=== PATIENT | male | born 1990 | race Caucasian/White ===

== ENCOUNTER 2019-08-25 23:04 | Emergency (ER) | payer OTHER, SELFPAY ==
[2019-08-25 23:04] VITALS: BP 131/67; PULSE 86; RESP 16; TEMP 36.3; O2SAT 97; BMI 22.8
--- NOTE | 2019-08-25 23:22 | ED.DCSUM_ITS ---
History of Present Illness Chief Complaint: General Illness Informant: Patient Narrative: Patient states that he was off about 2 weeks out of concern for COVID symptoms. He states he had a sore throat feeling rundown some diarrhea decreased appetite. Last Saturday he went back to work and has been working since. He works in a factory. Today he was having some diarrhea and some abdominal cramping. He went to work at approximately 2000 hours. He states he was extremely hot and they had him running 3 different lines. He began to get very weak sweaty fatigued. He states he went outside to get some fresh air but due to the high heat and humidity it did not really help him. He told his boss he needed to come get checked out. He notes that his sore throat is never left him. He states that when he was drinking water today he would get sweaty. He denies any fevers. He notes a continued cough. Notes various myalgias and arthralgias. Patient also inquires about his nasal congestion that he has had my entire life. He states he is tried nasal sprays and that did not help. He wonders what next to try. He also has a rash on his inner thighs that is basically gone now. It started a month ago started off as small red spots some of them turned into acne-like. Past Medical History - Allergies and Home Meds Allergies/Adverse Reactions: Allergies No Known Allergies Allergy (Verified 08/25/19 23:08) Primary Care Physician: Josie Perez MD [Primary Care Provider] - As soon as possible Smoking Status: Never smoker Review of Systems General: Reports: Chills, Malaise. Denies: Fever, Sweats Eyes: Denies: Visual changes - bilaterally, Diplopia ENT: Reports: Sore throat. Denies: Rhinorrhea Cardiovascular: Denies: Chest pain, Palpitations Respiratory: Reports: Cough. Denies: Dyspnea, Dyspnea on exertion Gastrointestinal: Reports: Abdominal pain, Diarrhea. Denies: Nausea, Vomiting, Melena, Hematochezia Genitourinary: Denies: Dysuria, Hematuria, Frequency Musculoskeletal: Reports: Myalgias, Arthralgias. Denies: Back pain, Extremity Pain Skin: Denies: Rash, Wounds Neurological: Reports: Headache. Denies: Weakness, Numbness Physical Exam Vital Signs/Narrative: Vital Signs Temp Pulse Resp BP Pulse Ox 08/25/19 23:04 97.4 F L 86 16 131/67 H 97 Inital Vital Signs reviewed: Yes General: Well nourished, Well developed, No Acute Distress Head: Normocephalic, Atraumatic Eyes: Perrl, EOMI ENT: Moist mucous membranes, No rhinorrhea Neck: Supple, Nontender Cardiovascular: Regular rate, Regular rhythm, No murmurs Respiratory: No distress, CTA bilaterally, Chest nontender Abdomen: Soft, Nontender, Nondistended, Normal bowel sounds Back: Nontender, Normal Inspection Extremities: Nontender, No edema Skin: Normal color, No rash Neurological: Alert, Oriented x3, Cranial nerves II-XII grossly intact, Normal Strength, Normal Sensation Psychological: Normal affect, Normal Mood Diagnostic/Tx/Re-eval - Medical Decision Making Chest x-ray shows no distinct infiltrates. A COVID test was sent will be resul fanta in the next couple days. I recommend that he stay home and rest. Think some of his symptoms tonight work were most likely heat exhaustion. I recommend he try daily Zyrtec or Claritin and if that does not help his nasal congestion either visit with his primary care physician again or with ENT. The rash is a basically gone except for a few scabs but sounds may be like a folliculitis. ED Disposition - Plan for ED Patient: Disposition: Home or Assisted Living Diagnosis: Viral syndrome, Heat exhaustion Instructions: ED Exhaustion Heat, ED Viral Syndrome Referrals: Josie Perez MD [Primary Care Provider] - As soon as possible Additional Instructions: Your Covid test should be back within the next couple days. I recommend that you not go to work until that test is back.
--- NOTE | 2019-08-25 23:30 | RAD_ITS ---
HISTORY: dyspnea, sore throat, headache, body ache and chills EXAMINATION/TECHNIQUE: XR Chest 1 View: Portable COMPARISON: None FINDINGS: Normal heart size and normal lung volumes. No focal infiltrate. No vascular congestion or pleural effusion. No pneumothorax. The bony thorax appears intact. RAD/Chest 1 View (Portable) IMPRESSION: No acute cardiopulmonary disease. at 0004 Reported and signed by: Jevon Griffiths MD Electronically Signed: Jevon Griffiths, at 0:03 EDT Tel , Service support ,
[2019-08-26 00:34] VITALS: BP 128/62; PULSE 78; PULSE 84; RESP 16; TEMP 36.6; O2SAT 97
[2019-08-26 00:38] VITALS: BP 128/62; PULSE 82; RESP 16; O2SAT 97
== END 2019-08-26 00:38 | disposition home or self-care (01) ==
PROVIDERS: Emergency Provider Emergency Medicine; PCP Internal Medicine
DX: B34.9 Viral infection, unspecified (principal); T67.5XXA Heat exhaustion, unspecified, initial encounter; X58.XXXA Exposure to other specified factors, initial encounter; Y93.9 Activity, unspecified; Y92.63 Factory as the place of occurrence of the external cause; Y99.0 Civilian activity done for income or pay; R19.7 Diarrhea, unspecified; J02.9 Acute pharyngitis, unspecified; R10.9 Unspecified abdominal pain; R05 Cough
CPT/HCPCS: 71045; 87635; 99282; G2023; U0003

== ENCOUNTER → 2024-08-13 | Outpatient (CLI) | payer MEDICAID, SELFPAY ==
[2024-08-13 16:34] LABS: Absolute Lymphocyte Count 1.49 X10^3/uL (0.83-4.51); Absolute Neutrophil Count 2.9 X10^3/uL (2.0-7.7); Basophil# 0.03 X10^3/uL; Basophil% 0.6 % (0-1); Eosinophil# 0.21 X10^3/uL; Eosinophils% 3.9 % (0-5); Hemoglobin 15.2 g/dL (13.0-16.5); Lymphocyte # 1.49 X10^3/ul (0.83-4.51); Lymphocyte % 27.7 % (19-41); Mean Corp Hgb Conc 33.8 g/dL (32-36); Mean Corpuscular Hgb 28.5 pg (27.0-32.0); Mean Corpuscular Volume 84.3 fL (80-94); Mean Platelet Vol. 9.9 fl (6.2-12.0); NRBC Flagged by Analyzer 0 % (0-5); Neutrophil # 2.93 X10^3/uL (2.7-7.7); Neutrophil % 54.4 % (47-70); Platelet Count 262 K/mm3 (150-450); RBC Distribution Width CV 12.4 % (11.6-14.6); RBC Distribution Width SD 37.7 fl (35.1-43.9); Red Blood Count 5.34 M/mm3 (4.6-6.2); White Blood Count 5.4 K/mm3 (4.4-11.0)
[2024-08-13 17:24] LABS: ALB/GLOB Ratio 1.5 RATIO (0.9-2.4); AST(SGOT) 52 U/L (<=37); Alanine Aminotransfer ALT/SGPT 91 U/L (<=46); Albumin, Serum 4.4 g/dL (3.5-5.0); Alkaline Phosphatase 72 U/L (40-129); Anion Gap 11 (5-15); BUN 13 mg/dL (4-19); BUN/Creat Ratio 10.6 RATIO (10-20); Calcium,Total 9.9 mg/dL (7.6-11.0); Carbon Dioxide 25.5 mmol/L (21.0-32.0); Chloride 101 mmol/L (98-108); Creatinine, Serum 1.26 mg/dL (0.70-1.20); EST Glomerular Filtration Rate 78 (>60); Glucose 98 mg/dL (70-99); Iron 126 ug/dL (65-175); Iron Binding Capacity,Total 326 ug/dL (250-450); Iron Binding Capacity,Unsat 200 ug/dL (228-428); Potassium 4.3 mmol/L (3.3-5.1); Protein, Total 7.4 g/dL (5.9-8.4); Sodium Level 137 mmol/L (133-145); Total Bilirubin 0.38 mg/dL (0.00-1.30); Vitamin B12 602 pg/mL (180-914)
[2024-08-18 12:09] LABS: Testosterone, % Free 4.22 % (1.50-4.20); Testosterone, Free 22.28 ng/dL (5.00-21.00); Testosterone, Total 528 ng/dL (264-916)
== END | disposition home or self-care (01) ==
LOC: VSLAB 16:03
DX: E55.9 Vitamin D deficiency, unspecified (principal); E53.8 Deficiency of other specified B group vitamins; R53.83 Other fatigue
CPT/HCPCS: 36415; 80053; 82306; 82607; 83540; 83550; 84402; 84403; 84443; 85025

== ENCOUNTER → 2024-09-22 | Outpatient (CLI) | payer MEDICAID, SELFPAY | END | disposition home or self-care (01) | LOC: PSN 08:28 | DX: R06.00 Dyspnea, unspecified (principal) | CPT/HCPCS: 94060; 94726; 94729 ==

== ENCOUNTER → 2024-09-23 | Outpatient (CLI) | payer MEDICAID, SELFPAY ==
--- NOTE | 2024-09-23 17:04 | US_ITS ---
PROCEDURE: THYROID 09/23/2024 REASON FOR EXAM: NODULE TECHNIQUE: THYROID FINDINGS: Right thyroid lobe size: 4.6 x 1.6 x 1.5 cm Left thyroid lobe size: 4 x 1.4 x 0.8 cm Isthmus: 0.3 cm Background parenchymal echotexture is homogeneous. Nodules: Right thyroid lobe few tiny colloid cysts are seen largest measures 3 x 2.2 mm. No left lobe/isthmus nodules are noted US/Thyroid IMPRESSION: Right thyroid lobe few tiny colloid cysts TR 1 RECOMMENDATION: Based on most suspicious nodule. Nodule size = largest diameter Only evaluate nodule if =>5 mm. Growth > 20% in 2 dimensions = worsening. Follow up to 4 nodules. Recommend biopsy for no more than 2 nodules. Reading [facility] [id number]
== END | disposition home or self-care (01) ==
LOC: US 17:02
DX: E04.9 Nontoxic goiter, unspecified (principal)
CPT/HCPCS: 76536